=== PATIENT | male | born 1975 | race Caucasian/White ===

== ENCOUNTER 2019-02-03 15:54 | Emergency (ER) | payer SELFPAY ==
[~2019-02-03] VITALS: Ht 170.2 cm; Wt 71.3 kg
[2019-02-03 16:15] VITALS: BP 138/83; PULSE 78; RESP 20; Ht 170.2 cm; Wt 71.3 kg
== END 2019-02-03 17:11 | disposition home or self-care (01) ==
LOC: E/R 15:54
DX: T18.2XXA Foreign body in stomach, initial encounter (principal); X58.XXXA Exposure to other specified factors, initial encounter; Y92.9 Unspecified place or not applicable
CPT/HCPCS: 74018